=== PATIENT | female | born 1965 | race Caucasian/White ===

== ENCOUNTER 2017-11-10 03:17 | Emergency (ER) | payer OTHER | END 2017-11-10 06:55 | disposition home or self-care (01) | LOC: FTE 03:17 | DX: J06.9 Acute upper respiratory infection, unspecified (principal) | CPT/HCPCS: 99284; Z7502 ==

== ENCOUNTER 2018-02-17 03:22 | Emergency (ER) | payer OTHER ==
[2018-02-17] MEDS: IBUPROFEN 600 MG TAB PO (06:43)
== END 2018-02-17 07:16 | disposition home or self-care (01) ==
LOC: FTE 03:22
DX: R51 Headache (principal); R07.9 Chest pain, unspecified; I10 Essential (primary) hypertension
CPT/HCPCS: 71045; 93005; 99284-25

== ENCOUNTER 2018-03-02 09:30 | Emergency (ER) | payer OTHER | END 2018-03-02 12:19 | disposition home or self-care (01) | LOC: FTE 09:30 | DX: S40.011A Contusion of right shoulder, initial encounter (principal); S80.01XA Contusion of right knee, initial encounter; I10 Essential (primary) hypertension; M25.411 Effusion, right shoulder; M25.461 Effusion, right knee; W01.0XXA Fall on same level from slipping, tripping and stumbling without subsequent striking against object, initial encounter; Y92.9 Unspecified place or not applicable | CPT/HCPCS: 73030; 73030-RT; 73562; 99284-25 ==

== ENCOUNTER 2018-08-01 21:10 | Emergency (ER) | payer OTHER ==
[2018-08-01 23:23] LABS: URINE BLOOD (Dip) POC 1+ (NEGATIVE); URINE GLUCOSE (Dip) POC Negative (NEGATIVE); URINE KETONES (Dip) POC Trace (NEGATIVE); URINE LEUKOCYTE EST (Dip) POC 1+ (NEGATIVE); URINE NITRITE (Dip) POC Negative (NEGATIVE); URINE TOTAL PROTEIN POC Negative (NEGATIVE)
[2018-08-01 23:42] LABS: ADD UMIC YES; UR ASCORBIC ACID 40 mg/dL (NEGATIVE); UR BACTERIA FEW /HPF (NONE SEEN); UR BILIRUBIN (Dip) NEGATIVE (NEGATIVE); UR BLOOD (Dip) NEGATIVE (NEGATIVE); UR CLARITY CLEAR (CLEAR); UR COLOR YELLOW (YELLOW); UR GLUCOSE (Dip) NEGATIVE (NEGATIVE); UR KETONES (Dip) NEGATIVE (NEGATIVE); UR LEUKOCYTE ESTERASE (Dip) 2+ Leu/ul (NEGATIVE); UR NITRITE (Dip) NEGATIVE (NEGATIVE); UR RBC 3 /HPF (0-5); UR SPECIFIC GRAVITY (Dip) 1.019 (1.003-1.030); UR TOTAL PROTEIN (Dip) NEGATIVE (NEGATIVE); UR UROBILINOGEN (Dip) NEGATIVE (NEGATIVE); UR WBC 10 /HPF (0-5)
[2018-08-01] MEDS: DIPHTH/TET/ACEL PERTUSS (ADULT) 0.5 ML VIAL IM* (23:43)
== END 2018-08-02 01:42 | disposition home or self-care (01) ==
LOC: E/R 08-02 01:42
DX: N39.0 Urinary tract infection, site not specified (principal); I10 Essential (primary) hypertension; K59.00 Constipation, unspecified; Z23 Encounter for immunization
CPT/HCPCS: 74176; 81001; 81003; 87086; 90471; 90715; 99284-25

== ENCOUNTER 2018-11-01 07:43 | Emergency (ER) | payer OTHER ==
[2018-11-01] MEDS: ONDANSETRON (ODT) 4 MG TAB ODT (08:49)
[2018-11-01] MEDS: HYDROCODONE/APAP (5/325) TAB PO (08:49)
== END 2018-11-01 09:10 | disposition home or self-care (01) ==
LOC: FTE 07:43
DX: M79.672 Pain in left foot (principal); I10 Essential (primary) hypertension
CPT/HCPCS: 73630; 73630-LT; 99283-25